=== PATIENT | female | born 1960 | race Caucasian/White ===

== ENCOUNTER 2017-08-24 21:36 | Emergency (ER) | payer BC ==
[2017-08-24] MEDS ORDERED: oxyCOD/ACETAMIN 5 MG/325 MG TABLET PO STA (22:10)
--- NOTE | 2017-08-24 22:15 | ED Physician Documentation ---
History of Present Illness - Stated complaint Stated Complaint: CHEST WALL PX - Chief complaint Chief Complaint: General - History obtained from History obtained from: Patient - History of Present Illness Timing: Prior to arrival - Additonal information Additional information: 57-year-old female who is currently being treated for breast cancer presents to the emergency department with mid chest wall pain. Today just prior to arrival the patient fell striking her chest on the edge of a couch. The patient reports pain with movement. No shortness of breath or difficulty breathing. The patient has had radiation to her chest. The patient denies palpitations, syncope, abdominal pain or dyspnea. No radiation of symptoms. Symptoms are described as moderate. No other associated symptoms. The patient did not take her normal pain medication Review of Systems Constitutional: denies: Fever Eyes: denies: Decreased vision Ears: denies: Ear pain Cardiac: reports: Other. denies: Chest pain / pressure (Chest wall pain), Palpitations, Pedal edema GI: denies: Abdominal Pain (Chest wall pain) Skin: denies: Rash Musculoskeletal: denies: Neck pain Neurologic: denies: Headache Immunocompromised: reports: Immunocompromised PD PAST MEDICAL HISTORY - Past Medical History Cardiovascular: None Respiratory: None Neuro: Peripheral neuropathy Other Past Medical History: Breast cancer - Past Surgical History General: Other (Meniscectomy) - Allergies Allergies/Adverse Reactions: Allergies Allergy/AdvReac Type Severity Reaction Status Date / Time silver Allergy Intermediate Rash Verified 08/24/17 21:42 [From Tegaderm AG Mesh] Sulfa (Sulfonamide Allergy Intermediate Rash Verified 08/24/17 21:41 Antibiotics) - Social History Does the pt smoke?: No PD ED PE NORMAL - General General: Alert and oriented X 3, No acute distress - HEENT HEENT: Atraumatic - Cardiac Cardiac: RRR, Other (The patient has chest wall tenderness, there is no crepitus or ecchymosis to the chest wall) - Respiratory Respiratory: No respiratory distress - Abdomen Abdomen: Non tender, Non distended - Derm Derm: Warm and dry - Extremities Extremities: No deformity, Normal ROM s pain - Neuro Neuro: Alert and oriented X 3, Normal speech - Psych Psych: Normal mood Results - Vitals Vitals: Vital Signs - 24 hr 08/24/17 21:43 Temperature 36.3 C L Heart Rate 89 Respiratory 18 Rate Blood Pressure 126/92 H O2 Saturation 100 Oxygen O2 Source Room air - Rads (name of study) No standard instances Radiology: See rad report, Other (CT chest without contrast: No acute traumatic injury, 0.5 cm right upper lobe nodule) PD MEDICAL DECISION MAKING - ED course Complexity details: other (The patient had a traumatic chest injury, there is no evidence of an acute injury on her CT scan that would necessitate admission to the hospital or acute surgical consultation. The patient appears appropriate for discharge home and will use her normal pain medications to manage her pain at home. I discussed with the patient the pulmonary nodule, the patient appears to know that she artery has a nodule in that region. I discussed warning signs and recommend returning to the emergency department immediately for worsening or new concerns) - Sepsis Event Vital Signs: Vital Signs - 24 hr 08/24/17 21:43 Temperature 36.3 C L Heart Rate 89 Respiratory 18 Rate Blood Pressure 126/92 H O2 Saturation 100 Oxygen O2 Source Room air Departure - Departure Clinical Impression: Pulmonary nodule Contusion, chest wall Qualifiers: Encounter type: initial encounter Laterality: unspecified laterality Qualified Code(s): S20.219A - Contusion of unspecified front wall of thorax, initial encounter Instructions: ED Contusion Chest Wall Follow-Up: Jabier Alamo MD [Primary Care Provider] - Within 1 week Comments: Please return to the emergency department for any worsening symptoms or any concerns
--- NOTE | 2017-08-24 23:20 | CT Report ---
Procedure Date: 08/24/2017 Accession Number: [id number] / [id number] Procedure: CT - Chest W/O CPT Code: FULL RESULT: EXAM: CT CHEST EXAM DATE: 08/24/2017 10:33 PM. CLINICAL HISTORY: Fall, chest injury, history of chest radiation. History of breast cancer. COMPARISONS: None. TECHNIQUE: Routine helical CT imaging was performed through the chest. IV contrast: None. Reconstructions: Coronal and sagittal. In accordance with CT protocol optimization, one or more of the following dose reduction techniques were utilized for this exam: automated exposure control, adjustment of mA and/or KV based on patient size, or use of iterative reconstructive technique. FINDINGS: Lungs/Pleura: Reticulation is present in the anterior superior left upper lobe most compatible with previous radiation therapy. No new areas of consolidation, effusions or pneumothorax. No endobronchial lesions are identified. Indeterminate 5 mm right upper lobe nodule abutting the fissure on image 4, 27. Subtle peribronchovascular interstitial densities in the anterior lateral right lower lobe on image 28 noted. Mediastinum: Normal. No adenopathy or masses. The heart and great vessels are normal. Bones: Unremarkable. Visualized Abdomen: Moderate paraesophageal hernia. Upper abdomen otherwise unremarkable. Right-sided port terminates in the lower SVC. Other: Status post previous bilateral mastectomy. No new adenopathy or breast mass. No supraclavicular adenopathy. IMPRESSION: 1. No acute pulmonary process. No pneumothorax or effusion. 0.5 cm right upper lobe nodule, indeterminate. Previous left upper lobe radiation therapy changes. 2. No chest wall hematoma or acute displaced rib fracture. 3. Status post bilateral mastectomy. No evidence of local recurrence or new adenopathy. 4. Moderate hiatal hernia. No cardiac enlargement or pericardial effusion or adenopathy. [facility]
[2017-08-25 00:23] VITALS: BP 124/88
== END 2017-08-25 00:15 | disposition home or self-care (01) ==
LOC: ED 21:36
DX: S20.219A Contusion of unspecified front wall of thorax, initial encounter (principal); W01.190A Fall on same level from slipping, tripping and stumbling with subsequent striking against furniture, initial encounter; Y92.9 Unspecified place or not applicable; R91.1 Solitary pulmonary nodule
CPT/HCPCS: 71250; 93005; 99283; A9270